=== PATIENT | female | born 1980 | race Caucasian/White ===

== ENCOUNTER → 2018-01-29 | Day surgery (SDC) | payer BC ==
[~2018-01-29] VITALS: Ht 162.6 cm; Wt 96.0 kg
[~2018-01-29] MED LIST: AMOX500C PO; CEPH-459 PO; CHLORHEXIDINE GLUCONATE 2 % 1 PACK (2 CLOTHS) TOPICAL PRN; EPIN1INJ17 IM; FEXO15TA PO; FLUC150T PO; HYDR-3288 PO; LACTATED RINGER'S 1000 ML IV PRN; LISD30 PO; LOSA25TA PO; MELO7.5T27 PO; METOPROLOL TARTRATE 25 MG TAB PO PRN; METR1TAB76 PO; MIDAZOLAM HCL 2 MG/2 ML VIAL ONE; POVIDONE IODINE 5% (ANTISEPSIS KIT) 4 APPLICATIONS EACH NARE PRN; QUET1TAB8 PO; SODIUM CHLORID 0.9% 500 ML IV PRN; TOPI50TA7 PO; ceFAZolin 2 GM/DEX PREMIX 50 ML IV SCH
[2018-01-29] MEDS: BUPIVACAINE HCL PF 0.5% 10 ML VIAL ONE ×2 (08:29→09:21)
[2018-01-29] MEDS: LIDOCAINE HCL 2% 50 ML VIAL ONE ×2 (08:29→09:21)
[2018-01-29] MEDS: NEOMYCIN/POLYMYXIN 1 ML G.U. IRRIGANT ONE ×2 (08:30→09:22)
[2018-01-29 08:50] VITALS: TEMP 98
[2018-01-29 09:35] VITALS: BP 109/74; PULSE 79; RESP 16; O2SAT 100
--- NOTE | 2018-01-29 11:47 | MP ---
cc: Matt Middleton MD DATE OF OPERATION: 01/29/2018 PREOPERATIVE DIAGNOSIS: Right third trigger finger. POSTOPERATIVE DIAGNOSIS: Right third trigger finger. PROCEDURE PERFORMED: Right third A1 yajaira release. PROCEDURE IN DETAIL: The patient was brought to the operating room, placed on the operating table. After the correct site and side for surgery were verified by members of each team in the room multiple times including the patient and myself, after adequate preoperative markings, preoperative written consent was verified by everyone, after adequate preoperative timeout was performed to everyone's satisfaction, and after adequate IV sedation was achieved, the right upper extremity was prepped and draped in traditional sterile surgical fashion. A 50:50 mixture of 2% plain lidocaine and 0.5% plain Marcaine was infiltrated in the skin and subcutaneous tissue over the A1 yajaira. The limb was exsanguinated with an Jose wrap, a highly-placed well-padded axillary tourniquet was inflated to 200 mmHg for a total of 9 minutes. Incision was made in the distal palmar crease and the third ray, carried down through skin and subcutaneous tissue. Blunt dissection was performed. The A1 yajaira was identified and divided in its midline in its entirety. The flexor tendons were explored and examined and found to be otherwise noncompromised. Exploration proximally did not reveal any crossing bands of tissue. Passive range of motion revealed normal examination. Thorough irrigation with a liters worth of saline was performed. The skin edges were reapproximated using running 4-0 nylon suture. The hand and arm were thoroughly cleansed and dried. Betadine, Adaptic dressing was applied on top of the wound followed by a bulky soft dressing. The axillary tourniquet was released. The hand and all fingers including the middle finger became immediately soft, pink and warm and had brisk capillary refill of less than 2 seconds. Sponge, needle and instrument counts were correct at the end of the case as reported by nurses in the room. MD PHUC Nick/NICHOLAS , 10:16 AM , 10:43 AM
== END | disposition home or self-care (01) ==
LOC: PHSDC 07:00
PROVIDERS: ATTEND Orthopaedic Surgery Hand Surgery
DX: M65.331 Trigger finger, right middle finger (principal)
CPT/HCPCS: 01810; 26055; J0690; J2250; J3010; J7120